=== PATIENT | female | born 1990 | race Asian ===

== ENCOUNTER 2018-06-24 11:25 | Inpatient (IN) | payer OTHER ==
[~2018-06-24] VITALS: Ht 172.7 cm; Wt 72.6 kg
[2018-06-24 11:47] VITALS: BP 98/69
[2018-06-24] MEDS ORDERED: OXYTOCIN 20 UNITS in LACTATED RINGERS 1,000 ML IV SCH (12:19)
[2018-06-24] MEDS ORDERED: PROMETHAZINE 25 MG/ML VIAL IVP PRN (12:20)
[2018-06-24] MEDS ORDERED: CARBOPROST 250 MCG/ML AMP IM PRN (12:20)
[2018-06-24] MEDS ORDERED: METHYLERGONOVINE 0.2 MG/ML AMP IM PRN (12:20)
[2018-06-24] MEDS ORDERED: IBUPROFEN 800 MG TAB PO PRN (12:20)
[2018-06-24] MEDS ORDERED: NALBUPHINE 10 MG/ML AMP IVP PRN (12:20)
[2018-06-24] MEDS: LACTATED RINGERS 1,000 ML IV SCH ×2 (13:14→20:36)
[2018-06-24 13:21] LABS: APPEARANCE,URINE SL CLOUDY (CLEAR); BILIRUBIN,URINE NEGATIVE (NEGATIVE); BLOOD, URINE 3+ (NEGATIVE); COLOR,URINE YELLOW (YELLOW); LEUKOCYTE ESTERASE ,URINE 1+ (NEGATIVE); NITRITE, URINE NEGATIVE (NEGATIVE); UGLUCOSE NEGATIVE (NEGATIVE)
[2018-06-24 13:27] LABS: RBC,URINE 20-50 /HPF (0-5)
[2018-06-24 13:44] LABS: HEMATOCRIT 37.6 % (36-48); HEMOGLOBIN 12.1 g/dL (12.0-16.0); MEAN CORPUSCULAR HEMOGLOBIN 28 pg (27-31); MEAN CORPUSCULAR HGB CONC 32 g/dL (33-37); MEAN CORPUSCULAR VOLUME 88.3 fL (80-94); PLATELET COUNT (AUTO) 204 K/uL (140-450); RED BLOOD CELL COUNT(AUTO) 4.26 MIL/uL (4.20-5.40); RED CELL DISTRIBUTION WIDTH 13.3 % (11.6-13.7); WHITE BLOOD COUNT (AUTO) 9.2 K/uL (4.8-10.8)
[2018-06-24 13:50] LABS: ALBUMIN 2.8 g/dL (3.4-5.0); ANION GAP 14.8 (8-16); CARBON DIOXIDE 22.1 mmol/L (21-32); CREATININE 0.6 mg/dL (0.6-1.3); POTASSIUM 3.9 mmol/L (3.5-5.1); TOTAL BILIRUBIN 0.3 mg/dL (0.0-1.0)
[2018-06-24 13:53] LABS: LYMPHOCYTES % (MANUAL) 19 % (20-46); MONOCYTES % (MANUAL) 5 % (5-12)
[2018-06-24] MEDS ORDERED: PREN-546 PO (17:52)
[2018-06-25 13:44] LABS: RAPID PLASMA REAGIN NON-REACTIVE (Non Reactiv)
== END 2018-06-24 22:20 | disposition home or self-care (01) | DRG 566 ==
LOC: MLD 11:25 → OBSVTOIN 12:17
PROVIDERS: ADMIT Obstetrics & Gynecology; ATTEND Obstetrics & Gynecology
DX: O26.893 Other specified pregnancy related conditions, third trimester (principal); Z3A.37 37 weeks gestation of pregnancy
CPT/HCPCS: 36415; 76805; 80053; 81001; 85025; 86592; 86886; 86900; 86901; 87086; G0378; J7120; Q0092

== ENCOUNTER 2018-06-25 23:30 | Inpatient (IN) | payer OTHER ==
[~2018-06-25] VITALS: Ht 172.7 cm; Wt 72.6 kg
[~2018-06-25 23:30] MED LIST: PREN-546 PO
[2018-06-26] MEDS ORDERED: ROPIVACAINE 0.2%/NS PREMIX 250 ML EPI ONE (00:21)
[2018-06-26] MEDS ORDERED: ROPIVACAINE 0.2%/NS PREMIX 250 ML EPI SCH (00:40)
[2018-06-26] MEDS ORDERED: LACTATED RINGERS 1,000 ML IV SCH (00:43)
[2018-06-26] MEDS ORDERED: LACTATED RINGERS 500 ML IV ONE (00:45)
[2018-06-26] MEDS ORDERED: OXYTOCIN 10 UNITS/ML VIAL IM SCH (00:45)
[2018-06-26] MEDS ORDERED: AMPICILLIN 2,000 MG in NACL 0.9% 100 ML IV SCH (00:50)
[2018-06-26] MEDS ORDERED: AMPICILLIN 2,000 MG VIAL ONE (01:12)
[2018-06-26 01:22] LABS: APPEARANCE,URINE CLEAR (CLEAR); BILIRUBIN,URINE NEGATIVE (NEGATIVE); BLOOD, URINE 3+ (NEGATIVE); COLOR,URINE YELLOW (YELLOW); LEUKOCYTE ESTERASE ,URINE NEGATIVE (NEGATIVE); NITRITE, URINE NEGATIVE (NEGATIVE); PH,URINE 6.5 (5.0-9.0); UGLUCOSE TRACE (NEGATIVE)
[2018-06-26 01:57] LABS: WHITE BLOOD COUNT (AUTO) 12.9 K/uL (4.8-10.8)
[2018-06-26 01:58] LABS: HEMOGLOBIN 11.4 g/dL (12.0-16.0); MEAN CORPUSCULAR HEMOGLOBIN 29 pg (27-31); MEAN CORPUSCULAR HGB CONC 33 g/dL (33-37); MEAN CORPUSCULAR VOLUME 87.9 fL (80-94); PLATELET COUNT (AUTO) 212 K/uL (140-450); RED BLOOD CELL COUNT(AUTO) 3.98 MIL/uL (4.20-5.40); RED CELL DISTRIBUTION WIDTH 13.2 % (11.6-13.7)
[2018-06-26 01:59] LABS: NEUTROPHILS % (AUTO) 79.5 % (42.2-75.2)
[2018-06-26 02:00] LABS: BASOPHILS % (AUTO) 0.7 % (0.0-2.0); EOSINOPHILS % (AUTO) 0.5 % (0.0-4.0); LYMPHOCYTES % (AUTO) 13.2 % (20.5-51.1); MONOCYTES % (AUTO) 6.1 % (1.7-9.3)
[2018-06-26 02:01] LABS: BASOPHILS # (AUTO) 0.1 K/uL (0.00-0.22); EOSINOPHILS # (AUTO) 0.1 K/uL (0-0.4); LYMPHOCYTES # (AUTO) 1.7 K/uL (2.5-16.5); MONOCYTES # (AUTO) 0.8 K/uL (0.8-1.0); NEUTROPHILS # (AUTO) 10.2 K/uL (1.8-7.7)
[2018-06-26 02:19] LABS: RBC,URINE 3-10 (FEW) /HPF (0-5); WBC,URINE 0-5 (RARE) /HPF (0-5)
[2018-06-26] MEDS ORDERED: CALCIUM (02:29)
[2018-06-26 02:49] VITALS: BP 105/70
[2018-06-26] MEDS ORDERED: AMPICILLIN 1,000 MG in NACL 0.9% 50 ML IV SCH (04:00)
[2018-06-26] MEDS ORDERED: AMPICILLIN 1,000 MG VIAL ONE (04:56)
[2018-06-26] MEDS ORDERED: OXYTOCIN 10 UNITS/ML VIAL ONE (04:56)
[2018-06-26] MEDS ORDERED: OXYTOCIN 20 UNITS/LR PREMIX 1,000 ML IV ONE (04:57)
[2018-06-26] MEDS ORDERED: IBUPROFEN 800 MG TAB PO PRN (07:25)
[2018-06-26] MEDS ORDERED: BENZOCAINE/MENTHOL 20%-0.5% 60 GM CAN TP PRN (07:25)
[2018-06-26] MEDS ORDERED: oxyCODONE/APAP 5/325 MG 1 TAB TAB PO PRN (07:25)
[2018-06-26] MEDS ORDERED: OXYTOCIN 10 UNITS/ML VIAL IM PRN (07:25)
[2018-06-26] MEDS ORDERED: METHYLERGONOVINE 0.2 MG/ML AMP IM PRN (07:25)
[2018-06-26] MEDS ORDERED: TEMAZEPAM 15 MG CAP PO PRN (07:25)
[2018-06-26] MEDS ORDERED: MEASLES, MUMPS, AND RUBELLA 1 VIAL SQVAC PRN (07:25)
--- NOTE | 2018-06-26 08:16 | NUR ---
PATIENT HAS BEEN SCREENED AND CATEGORIZED LOW NUTRITION RISK. PATIENT WILL BE SEEN WITHIN 7 DAYS OF ADMISSION. 07/02/[address]
[2018-06-26] MEDS: HYDROcodone/APAP 5/325 MG 1 TAB TAB PO PRN ×2 (12:10→18:56)
[2018-06-26] MEDS ORDERED: DOCUSATE SOD/SENNA 50/8.6 MG 1 TAB PO SCH (21:00)
[2018-06-27 06:06] LABS: HEMATOCRIT 32.1 % (36-48); HEMOGLOBIN 10.8 g/dL (12.0-16.0)
[2018-06-28] MEDS ORDERED: IBUP-2213 PO (09:51)
== END 2018-06-28 13:45 | disposition home or self-care (01) | DRG 560 ==
LOC: MLD 23:30 → MFCC 06-26 09:12
PROVIDERS: ADMIT Obstetrics & Gynecology; ATTEND Obstetrics & Gynecology
PROC: 10E0XZZ Delivery of Products of Conception, External Approach (ICD-10-PCS; principal; 2018-06-26)
PROC: 0HQ9XZZ Repair Perineum Skin, External Approach (ICD-10-PCS; 2018-06-26)
PROC: 3E0R3BZ Introduction of Anesthetic Agent into Spinal Canal, Percutaneous Approach (ICD-10-PCS; 2018-06-26)
PROC: 00HU33Z Insertion of Infusion Device into Spinal Canal, Percutaneous Approach (ICD-10-PCS; 2018-06-26)
DX: O77.0 Labor and delivery complicated by meconium in amniotic fluid (principal); O64.0XX0 Obstructed labor due to incomplete rotation of fetal head, not applicable or unspecified; O70.0 First degree perineal laceration during delivery; Z37.0 Single live birth; Z3A.37 37 weeks gestation of pregnancy; Z91.02 Food additives allergy status; Z28.21 Immunization not carried out because of patient refusal
CPT/HCPCS: 36415; 51702; 59409; 81001; 85018; 85025; 86592; 87081; 87653-90; J0290; J2590; J2795; J7120; Q0163